=== PATIENT | male | born 1995 | race Caucasian/White ===

== ENCOUNTER 2017-11-14 08:44 | Emergency (ER) | payer MEDICAID ==
[~2017-11-14] VITALS: Ht 185.4 cm; Wt 74.7 kg
[~2017-11-14 08:44] MED LIST: IBUP-1574 PO; IBUP-814 PO; NAPR-232 PO; NO HOME MEDS; TYLENOL PRN
[2017-11-14 09:01] VITALS: BP 105/66
[2017-11-14] MEDS ORDERED: AMOX-580 PO (10:25)
[2017-11-14] MEDS ORDERED: TRAM50TA2 PO (10:25)
[2017-11-14] MEDS ORDERED: CHLO473M3 PO (10:25)
== END 2017-11-14 11:06 | disposition home or self-care (01) ==
LOC: ER 08:44
DX: K05.20 Aggressive periodontitis, unspecified (principal); F12.10 Cannabis abuse, uncomplicated; F15.10 Other stimulant abuse, uncomplicated; Z79.899 Other long term (current) drug therapy
CPT/HCPCS: 99283

== ENCOUNTER 2019-10-12 09:48 | Emergency (ER) | payer MEDICAID ==
[~2019-10-12] VITALS: Ht 185.4 cm; Wt 77.3 kg
[~2019-10-12 09:48] MED LIST changes: +CHLO473M3 PO
[2019-10-12 10:05] VITALS: BP 146/84
[2019-10-12] MEDS ORDERED: SULF1TAB49 PO (11:16)
== END 2019-10-12 11:26 | disposition home or self-care (01) ==
LOC: ER 09:48
DX: S60.321A Blister (nonthermal) of right thumb, initial encounter (principal); L08.89 Other specified local infections of the skin and subcutaneous tissue; F12.90 Cannabis use, unspecified, uncomplicated; F15.90 Other stimulant use, unspecified, uncomplicated; F11.90 Opioid use, unspecified, uncomplicated; Z79.899 Other long term (current) drug therapy; Z72.89 Other problems related to lifestyle; X58.XXXA Exposure to other specified factors, initial encounter; Y93.89 Activity, other specified; Y92.89 Other specified places as the place of occurrence of the external cause; Y99.8 Other external cause status
CPT/HCPCS: 10060; 10140; 73140; 99283; 99284

== ENCOUNTER 2020-08-14 16:07 | Emergency (ER) | payer MEDICAID ==
[~2020-08-14] VITALS: Ht 185.4 cm; Wt 40.9 kg
[2020-08-14 16:36] VITALS: BP 140/88
== END 2020-08-14 16:50 | disposition home or self-care (01) ==
LOC: ER 16:08
DX: Z02.89 Encounter for other administrative examinations (principal); F12.90 Cannabis use, unspecified, uncomplicated; F15.90 Other stimulant use, unspecified, uncomplicated; F11.90 Opioid use, unspecified, uncomplicated; Z72.89 Other problems related to lifestyle; Z79.899 Other long term (current) drug therapy
CPT/HCPCS: 99281

== ENCOUNTER 2020-10-07 13:42 | Emergency (ER) | payer MEDICAID ==
[~2020-10-07] VITALS: Ht 182.9 cm; Wt 96.5 kg
[2020-10-07 13:47] VITALS: BP 128/76
[2020-10-07] MEDS ORDERED: TERB30CR8 TP (16:25)
== END 2020-10-07 16:33 | disposition home or self-care (01) ==
LOC: ER 13:42
DX: B35.6 Tinea cruris (principal); F12.90 Cannabis use, unspecified, uncomplicated; F15.90 Other stimulant use, unspecified, uncomplicated; F11.90 Opioid use, unspecified, uncomplicated; Z79.899 Other long term (current) drug therapy
CPT/HCPCS: 99283

== ENCOUNTER 2025-05-24 08:33 | Emergency (ER) | payer SELFPAY ==
[~2025-05-24] VITALS: Ht 182.9 cm; Wt 97.7 kg
[~2025-05-24 08:33] MED LIST changes: +CHLO473M13 PO; -CHLO473M3 PO; +TERB30CR8 TP
[2025-05-24 08:38] VITALS: TEMP 97.9
[2025-05-24] MEDS: LIDOcaine 1% W/epiNEPHrine 1:100,000 20ml vial SQ ONE (10:29)
--- NOTE | 2025-05-24 11:23 | Physician Documentation ---
History of Present Illness ~ Chief Complaint: Laceration Stated Complaint: FINGER LAC TO BONE Time Seen by MD: 10:47 Primary Medical Doctor: none HPI Cut his left index finger with a weigh box tender knife just prior to arrival. No history of injury to this finger. Tdap up-to-date Tetanus Within 5 Years: No (unsure) Medication Reconciliation Allergies: Coded Allergies: No Known Allergies (Unverified , 05/24/25) Scheduled Chlorhexidine Gluconate (Periogard), 15 ML PO Q12H Ibuprofen (Motrin), 600 MG PO Q6H PRN FOR PAIN Ibuprofen (Ibuprofen), 800 MG PO Q8H Naproxen (Naprosyn), 500 MG PO Q12H PRN PAIN Terbinafine Hcl (Terbinafine Hcl), 1 APPLIC TP BID Miscellaneous Medications Home Med List (No Home Medications), (Reported) Home Med List (No Home Medications), (Reported) [tylenol PRN], (Reported) Past Medical History Past Medical History: Cellulitis, *PSYCH* Past Surgical History: no surgical history Alcohol Use: Occasionally Drug Use: marijuana, methamphetamine, heroin Lives with: Mother Lives In: Home Occupation: employed Review of Systems All Other Systems at this time: Reviewed and Negative Physical Exam Vital Signs: Temperature: 97.9, Source: Temporal, Heart Rate: 86, Respiratory Rate: 16, BP: 139/98, Pulse Oximetry: 99, Weight: 97.700 Physical Exam Well-appearing no distress resting comfortably in bed Awake alert oriented Breathing comfortably MSK 2 cm laceration along D IP left index finger. Intact flexion. Intact sensation intact extension Procedures Laceration/Wound Repair Laceration : Anesthesia: Lidocaine w/ Epi Foreign Body: not identified Repaired: skin Wound Repaired With: sutures Suture Size/Type: 4-0, prolene Number of Superficial Sutures: 4 Layer Closure?: No Tolerated Procedure Well?: yes, no complications Progress Results/Orders Results/Orders Orders - VITALIY TRUJILLO MD Laceration/I&D Tray Set Up (05/24/25 ) Completed Orders - VITALIY TRUJILLO MD Lidocaine 1% W/Epi 1:100,000 (Xylocaine (05/24/25 10:10) Vital Signs 05/24/25 08:38 Temp 97.9 Pulse 86 Resp 16 B/P (MAP) 139/98 Pulse Ox 99 Medical Decision Making Additional information obtaine: N/A Findings Patient here for simple laceration of his left index finger with no flexor tendon involvement. Four sutures placed Differential Dx:Considerations: Include: Laceration Departure Disposition: 01 HOME / SELF CARE / HOMELESS Impression: Primary Impression: Laceration Additional Instructions: You may return in 7 days for suture removal or you may remove on your own as I thought you. Return if the wound appears infected. Apply bacitracin or antibiotic ointment to the affected area daily keep it covered at all times. You may gently wash with soap and warm water. Keep it clean and dry Referrals: NO PRIMARY CARE PROVIDER (PCP) Signature Scribe Signature: None Attestation: None VITALIY TRUJILLO MD May 24, 2025 11:23
[2025-05-24 11:37] VITALS: BP 132/89; PULSE 82; RESP 15; O2SAT 99
== END 2025-05-24 11:36 | disposition home or self-care (01) ==
LOC: ER 08:34
DX: S61.211A Laceration without foreign body of left index finger without damage to nail, initial encounter (principal); W26.0XXA Contact with knife, initial encounter; Y93.89 Activity, other specified; Y92.89 Other specified places as the place of occurrence of the external cause; Y99.8 Other external cause status
CPT/HCPCS: 12001; 99282; A6449